=== PATIENT | male | born 1950 | race Caucasian/White ===

== ENCOUNTER 2018-02-19 11:20 | Day surgery (SDC) | payer MEDICARE, MEDICAID ==
[2018-02-19] VITALS (9 sets, daily range): BP systolic 161–177; BP diastolic 81–93; PULSE 50–602; TEMP 98.4
[~2018-02-19] VITALS: Ht 175.3 cm; Wt 159.1 kg
[2018-02-19] MEDS ORDERED: ASPI325T6 PO ×2 (11:39→14:48)
[2018-02-19] MEDS ORDERED: ZESTRIL 5MG5 MG PO ×2 (11:41→14:48)
[2018-02-19] MEDS ORDERED: LANOXIN 0.120.125 MG PO (11:41)
[2018-02-19] MEDS ORDERED: NITRO-DUR0.4 MG/PAT TD (11:42)
[2018-02-19] MEDS ORDERED: ZANTAC 150MG T150 MG PO (11:43)
[2018-02-19] MEDS ORDERED: TOPROL XL200 MG PO (11:44)
[2018-02-19] MEDS ORDERED: ISTALOL 2.5 ML2.5 ML OS (11:44)
[2018-02-19] MEDS ORDERED: XALATAN EYE DROPS OU (11:44)
[2018-02-19] MEDS ORDERED: ZOCOR 20MG20 MG PO (11:45)
[2018-02-19] MEDS ORDERED: AZOPT 10 ML10 ML OU (11:45)
[2018-02-19] MEDS ORDERED: CATAPRES 0.1MG0.1 MG PO ×2 (11:46→14:48)
[2018-02-19] MEDS ORDERED: GLUCOTROL10 MG PO (11:46)
[2018-02-19] MEDS ORDERED: ALMACONE 360 M360 ML PO (11:47)
[2018-02-19] MEDS ORDERED: LASIX 40MG TABL40 MG PO (11:47)
[2018-02-19] MEDS ORDERED: GLUCOPHAGE850 MG/TAB PO (11:47)
[2018-02-19] MEDS ORDERED: K-TAB20 PO (11:48)
[2018-02-19] MEDS ORDERED: TYLENOL 325MG325 MG PO (11:49)
[2018-02-19 12:20] LABS: INR 1.2 (0.8-3.0); PROTHROMBIN TIME 13.1 SECONDS (9.7-12.8)
[2018-02-19 12:26] LABS: CREATININE, serum 0.69 mg/dL (0.66-1.25); HEMATOCRIT 48.1 % (42.0-52.0); HEMOGLOBIN 15.8 g/dl (13.5-18.0); MEAN CELL VOLUME 87 fl (80.0-100.0); MEAN CORPUSCULAR HEMOGLOBIN 29 pg (27.0-31.0); MEAN CORPUSCULAR HGB CONC 33 g/dl (33.0-37.0); MEAN PLATELET VOLUME 9.9 fl (7.4-10.4); PLATELET COUNT 170 K/mm3 (130-400); POTASSIUM 4.2 mmol/L (3.4-5.0); RED BLOOD COUNT 5.53 M/mm3 (4.20-5.60); REDCELL DISTRIBUTION WIDTH-CV 15.9 % (11.5-14.5)
== END 2018-02-19 17:09 ==
LOC: COL.CAR 11:20
PROVIDERS: Internal Medicine Interventional Cardiology
DX: I25.10 Atherosclerotic heart disease of native coronary artery without angina pectoris (principal); R94.39 Abnormal result of other cardiovascular function study; I11.0 Hypertensive heart disease with heart failure; I50.9 Heart failure, unspecified; E78.5 Hyperlipidemia, unspecified; R60.0 Localized edema; Z79.84 Long term (current) use of oral hypoglycemic drugs
CPT/HCPCS: C1887; C1894; J1644; J2250; J3010; Q9967

== ENCOUNTER 2019-01-04 09:15 | Outpatient (RCR) | payer MEDICARE, MEDICAID ==
[~2019-01-04 09:15] MED LIST: ALMACONE 360 M360 ML PO; ASPI325T6 PO; AZOPT 10 ML10 ML OU; CATAPRES 0.1MG0.1 MG PO; GLUCOPHAGE850 MG/TAB PO; GLUCOTROL10 MG PO; ISTALOL 2.5 ML2.5 ML OS; K-TAB20 PO; LANOXIN 0.120.125 MG PO; LASIX 40MG TABL40 MG PO; NITRO-DUR0.4 MG/PAT TD; TOPROL XL200 MG PO; TYLENOL 325MG325 MG PO; XALATAN EYE DROPS OU; ZANTAC 150MG T150 MG PO; ZESTRIL 5MG5 MG PO; ZOCOR 20MG20 MG PO
== END 2019-01-26 13:35 | disposition home or self-care (01) ==
LOC: WSPT 09:15
DX: I89.0 Lymphedema, not elsewhere classified (principal); Z95.1 Presence of aortocoronary bypass graft